=== PATIENT | female | born 1970 | race Caucasian/White ===

== ENCOUNTER 2021-11-02 01:24 | Emergency (ER) | payer BC ==
[2021-11-02 02:23] LABS: Absolute Neutrophil Ct (ANC) 4.93 x10^3/uL (1.4-6.9); Basophil (Absolute #) 0.07 x10^3/uL (0-0.4); Eosinophil % 1.6 % (0.00-5.0); Eosinophil (Absolute #) 0.14 x10^3/uL (0-0.5); Hematocrit 41.8 % (35-47); Hemoglobin 13.6 g/dL (12.0-16.0); Lymphocyte (Absolute #) 2.56 x10^3/uL (1.0-4.6); Lymphocytes % 29.6 % (24.0-44.0); Mean Cell Volume 87.8 fL (78-100); Mean Corpuscular Hemoglobin 28.6 pg (26-32); Mean Corpuscular Hgb Concent. 32.5 g/dL (32-36); Mean Platelet Volume 11.3 fL (7.5-11.0); Monocyte (Absolute #) 0.89 x10^3/uL (0.0-1.3); Monocytes % 10.3 % (0.0-12.0); Neutrophil % 57.1 % (36.0-66.0); Platelet Count 258 x10^3/uL (150-450); Red Blood Count 4.76 x10^6/uL (4.1-5.4); Red Cell Distribution Width 12.6 % (11.5-14.0); White Blood Count 8.6 x10^3/uL (4.0-10.5)
[2021-11-02 02:36] LABS: INR 0.97 (0.8-3.0); PROTIME 10.3 SECONDS (9.4-12.5); PTT 29.6 SECONDS (25.1-36.5)
[2021-11-02 02:39] LABS: ALBUMIN 3.7 g/dL (3.5-5.0); ALKALINE PHOSPHATASE 73 U/L (38-126); ANION GAP 9.9 MEQ/L (5-15); BLOOD UREA NITROGEN 10 mg/dL (7-17); CHLORIDE 105 mmol/L (98-107); Calcium 9.1 mg/dL (8.4-10.2); Carbon Dioxide 30 mmol/L (22-30); Creatinine 1 0.69 mg/dL (0.52-1.04); EST GLOMERULAR FILTRATION RATE > 60.0 ML/MIN; Glucose 108 mg/dL (74-106); NT PRO BNP 53.1 pg/mL (0-900); Potassium 3.4 mmol/L (3.5-5.1); SGOT/AST 25 U/L (14-36); SGPT/ALT 19 U/L (0-35); SODIUM 141 mmol/L (137-145); Total Protein 6.8 g/dL (6.3-8.2)
--- NOTE | 2021-11-02 06:36 | ERPHSYRPT ---
<YANELI GARY - Last Filed: 11/02/21 09:50> - History of Present Illness Source: patient Exam Limitations: no limitations Patient Subjective Stated Complaint: pt states she woke up around 0030 tonight and was very dizzy and unable to get to the bathroom by herself and had lt side weakness. states all was normal when she went to bed at 2130 Triage Nursing Assessment: pt alert and oriented, speech is wnl. pt back per wheelchair. transfers to stretcher with assist of 1. mild lt side facial droop. drift noted to lt upper and lower ext Time of Onset/Last Time Seen Normal: 2129 Timing/Duration: today, sudden Severity: moderate Character of Deficits: new weakness, altered sensation, vision problems Deficits: no difficulties Baseline/Normal Cognition: alert oriented x 3 Current Cognition: alert oriented x 3 Baseline Gait: walks w/o assistance Associated Symptoms: numbness/tingling in legs/feet Hx Tetanus, Diphtheria Vaccination/Date Given: No Hx Influenza Vaccination/Date Given: No Hx Pneumococcal Vaccination/Date Given: No Immunizations Up to Date: No <VIANCA JEFFERS - Last Filed: 11/03/21 22:39> - History of Present Illness Time Seen by Provider: 11/02/21 02:13 Physician History: PER dR. Jeffers, THE PT NOTED SYMPTOMS last pm and reported to ER after window for TPA with some improvement prior to arrival but stable since. No prior Hx but on hormonal patch which will need to be discontinued per neuro consult. awaiting CTA head and neck, then to seek admission for obs and continued workup including MRI if no acute thrombus, but to seek transfer for potential intervention if any found. (YANELI GARY) 51-year-old female presented to the ER with sudden onset feeling dizzy around 12:30 AM after she woke up for the bathroom and was having difficulty making their. She was having numbness on the left face and upper extremity along with weakness of left upper and lower extremity. She went to bed around 9:30 PM. There is some improvement in the weakness but still have numbness. No difficulty speech. (VIANCA JEFFERS) Allergies/Adverse Reactions: prednisone Adverse Reaction (Intermediate, Verified 11/02/21 01:55) low heart rate Home Medications: estradioL [Estradiol (Once Weekly)] 1 each TD WEEKLY 11/02/21 [History] Travel Risk - International Travel Have you traveled outside of the country in past 3 weeks: No - Coronavirus Screening Are you exhibiting any of the following symptoms?: No Close contact with a COVID-19 positive Pt in past 14-21 Days: No - Vaccine Status Have you recieved a Covid-19 vaccination: Yes [employer]: Moderna - Vaccination Dates Date of 2cond Vaccination (if applicable): 2020 <VIANCA JEFFERS - Last Filed: 11/03/21 22:39> - Review of Systems Constitutional: No Symptoms Eyes: Vision Changes Ears, Nose, & Throat: No Symptoms Respiratory: No Symptoms Cardiac: No Symptoms Abdominal/Gastrointestinal: No Symptoms Genitourinary Symptoms: No Symptoms Musculoskeletal: No Symptoms Skin: No Symptoms Neurological: Dizziness, Focal Weakness, Gait Changes, Sensory Changes Psychological: No Symptoms Endocrine: No Symptoms Hematologic/Lymphatic: No Symptoms Immunological/Allergic: No Symptoms <VIANCA JEFFERS - Last Filed: 11/03/21 22:39> - Past Medical History Pertinent Past Medical History: Yes Respiratory History: Asthma Other Medical History: hypoglycemia - Past Surgical History Past Surgical History: Yes Gastrointestinal: Cholecystectomy Female Surgical History: Hysterectomy Other Surgical History: hyster diamante - Social History Smoking Status: Former smoker Exposure to second hand smoke: No Drug Use: marijuana Patient Lives Alone: No <VIANCA JEFFERS - Last Filed: 11/03/21 22:39> - Physical Exam Pelvic Exam: deferred Rectal Exam: deferred Peripheral Pulses: carotid (R): 2+, carotid (L): 2+, femoral (R): 2+, femoral (L): 2+, dorsalis-pedis (R): 2+, dorsalis-pedis (L): 2+ <YANELI GARY - Last Filed: 11/02/21 09:50> - Hermelindo Coma Scale Best Eye Response (Hermelindo): (4) open spontaneously Best Verbal Response (Hermelindo): (5) oriented Best Motor Response (Hermelindo): (6) obeys commands Hermelindo Total: 15 - Physical Exam General Appearance: no apparent distress, alert Eye Exam: bilateral eye: normal inspection, PERRL, EOMI Ears, Nose, Throat Exam: normal ENT inspection, TMs normal, pharynx normal, moist mucous membranes Neck Exam: normal inspection, non-tender, supple, full range of motion Respiratory: normal breath sounds Cardiovascular: regular rate/rhythm, normal heart sounds Gastrointestinal: soft, normal bowel sounds, No tenderness Back Exam: normal inspection, normal range of motion Extremity Exam: normal inspection, normal range of motion, pelvis stable Mental Status: alert, oriented x 3, 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 Exam: normal hearing, normal speech, PERRL, No abnormal eye position Coordination/Gait: No normal cerebellar function Motor/Sensory: pronator drift (L), sensory deficit, weak motor strength LUE, weak motor strength LLE Skin Exam: normal color SpO2 Interpretation: normal SpO2: 99 O2 Delivery: Room Air <VIANCA JEFFERS - Last Filed: 11/03/21 22:39> - Nursing Vital Signs Nursing Vital Signs: Initial Vital Signs Pulse Rate 74 11/02/21 01:30 Respiratory Rate 16 11/02/21 01:30 Blood Pressure 136/76 11/02/21 01:30 O2 Sat by Pulse Oximetry 98 11/02/21 01:30 Pain Scale Pain Intensity 0 - Course Nursing assessment & vital signs reviewed: Yes EKG Interpreted by Me: NORMAL AXIS, NORMAL INTERVALS, NORMAL QRS, Non-specific ST Changes - CT Exams Head CT Interpretation: Tele-radiologist Report, No/Intracranial Hemorrhag <YANELI GARY - Last Filed: 11/02/21 09:50> Ordered Tests: Medication Summary Discontinued Medications Generic Name Dose Route Start Last Admin Trade Name Freq PRN Reason Stop Dose Admin Aspirin 324 mg 11/02/21 06:59 11/02/21 07:08 Aspirin 81 Mg Tab.Chew PO 11/02/21 07:00 324 mg STAT ONE Administration Lab/Rad Data: Laboratory Result Diagrams 11/02/21 02:20 11/02/21 02:20 Laboratory Results 11/02/21 11/02/21 11/02/21 Range/Units 08:20 05:15 02:20 WBC (4.0-10.5) x10^3/uL RBC (4.1-5.4) x10^6/uL Hgb (12.0-16.0) g/dL Hct (35-47) % MCV (78-100) fL MCH (26-32) pg MCHC (32-36) g/dL RDW (11.5-14.0) % Plt Count (150-450) x10^3/uL MPV (7.5-11.0) fL Gran % (36.0-66.0) % Immature Gran % (Auto) (0.00-0.4) % Nucleat RBC Rel Count (0.00-0.1) % Eos # (Auto) (0-0.5) x10^3/uL Immature Gran # (Auto) (0.00-0.03) x10^3u/L Absolute Lymphs (auto) (1.0-4.6) x10^3/uL Absolute Monos (auto) (0.0-1.3) x10^3/uL Absolute Nucleated RBC (0.00-0.01) x10^3u/L Lymphocytes % (24.0-44.0) % Monocytes % (0.0-12.0) % Eosinophils % (0.00-5.0) % Basophils % (0.0-0.4) % Absolute Granulocytes (1.4-6.9) x10^3/uL Basophils # (0-0.4) x10^3/uL PT (9.4-12.5) SECONDS INR (0.8-3.0) APTT (25.1-36.5) SECONDS Sodium (137-145) mmol/L Potassium (3.5-5.1) mmol/L Chloride (98-107) mmol/L Carbon Dioxide (22-30) mmol/L Anion Gap (5-15) MEQ/L BUN (7-17) mg/dL Creatinine (0.52-1.04) mg/dL Estimated GFR ML/MIN Glucose (74-106) mg/dL POC Glucometer (74 to 106) mg/dL Calcium (8.4-10.2) mg/dL Total Bilirubin (0.2-1.3) mg/dL AST (14-36) U/L ALT (0-35) U/L Alkaline Phosphatase (38-126) U/L Troponin I < 0.012 < 0.012 < 0.012 (0.000-0.034) ng/mL NT-Pro-B Natriuret Pep (0-900) pg/mL Serum Total Protein (6.3-8.2) g/dL Albumin (3.5-5.0) g/dL 11/02/21 11/02/21 11/02/21 Range/Units 02:20 02:20 02:20 WBC 8.6 (4.0-10.5) x10^3/uL RBC 4.76 (4.1-5.4) x10^6/uL Hgb 13.6 (12.0-16.0) g/dL Hct 41.8 (35-47) % MCV 87.8 (78-100) fL MCH 28.6 (26-32) pg MCHC 32.5 (32-36) g/dL RDW 12.6 (11.5-14.0) % Plt Count 258 (150-450) x10^3/uL MPV 11.3 H (7.5-11.0) fL Gran % 57.1 (36.0-66.0) % Immature Gran % (Auto) 0.6 H (0.00-0.4) % Nucleat RBC Rel Count 0.0 (0.00-0.1) % Eos # (Auto) 0.14 (0-0.5) x10^3/uL Immature Gran # (Auto) 0.05 H (0.00-0.03) x10^3u/L Absolute Lymphs (auto) 2.56 (1.0-4.6) x10^3/uL Absolute Monos (auto) 0.89 (0.0-1.3) x10^3/uL Absolute Nucleated RBC 0.00 (0.00-0.01) x10^3u/L Lymphocytes % 29.6 (24.0-44.0) % Monocytes % 10.3 (0.0-12.0) % Eosinophils % 1.6 (0.00-5.0) % Basophils % 0.8 (0.0-0.4) % Absolute Granulocytes 4.93 (1.4-6.9) x10^3/uL Basophils # 0.07 (0-0.4) x10^3/uL PT 10.3 (9.4-12.5) SECONDS INR 0.97 (0.8-3.0) APTT 29.6 (25.1-36.5) SECONDS Sodium 141 (137-145) mmol/L Potassium 3.4 L (3.5-5.1) mmol/L Chloride 105 (98-107) mmol/L Carbon Dioxide 30 (22-30) mmol/L Anion Gap 9.9 (5-15) MEQ/L BUN 10 (7-17) mg/dL Creatinine 0.69 (0.52-1.04) mg/dL Estimated GFR > 60.0 ML/MIN Glucose 108 H (74-106) mg/dL POC Glucometer (74 to 106) mg/dL Calcium 9.1 (8.4-10.2) mg/dL Total Bilirubin 0.40 (0.2-1.3) mg/dL AST 25 (14-36) U/L ALT 19 (0-35) U/L Alkaline Phosphatase 73 (38-126) U/L Troponin I (0.000-0.034) ng/mL NT-Pro-B Natriuret Pep 53.1 (0-900) pg/mL Serum Total Protein 6.8 (6.3-8.2) g/dL Albumin 3.7 (3.5-5.0) g/dL 11/02/21 Range/Units 01:48 WBC (4.0-10.5) x10^3/uL RBC (4.1-5.4) x10^6/uL Hgb (12.0-16.0) g/dL Hct (35-47) % MCV (78-100) fL MCH (26-32) pg MCHC (32-36) g/dL RDW (11.5-14.0) % Plt Count (150-450) x10^3/uL MPV (7.5-11.0) fL Gran % (36.0-66.0) % Immature Gran % (Auto) (0.00-0.4) % Nucleat RBC Rel Count (0.00-0.1) % Eos # (Auto) (0-0.5) x10^3/uL Immature Gran # (Auto) (0.00-0.03) x10^3u/L Absolute Lymphs (auto) (1.0-4.6) x10^3/uL Absolute Monos (auto) (0.0-1.3) x10^3/uL Absolute Nucleated RBC (0.00-0.01) x10^3u/L Lymphocytes % (24.0-44.0) % Monocytes % (0.0-12.0) % Eosinophils % (0.00-5.0) % Basophils % (0.0-0.4) % Absolute Granulocytes (1.4-6.9) x10^3/uL Basophils # (0-0.4) x10^3/uL PT (9.4-12.5) SECONDS INR (0.8-3.0) APTT (25.1-36.5) SECONDS Sodium (137-145) mmol/L Potassium (3.5-5.1) mmol/L Chloride (98-107) mmol/L Carbon Dioxide (22-30) mmol/L Anion Gap (5-15) MEQ/L BUN (7-17) mg/dL Creatinine (0.52-1.04) mg/dL Estimated GFR ML/MIN Glucose (74-106) mg/dL POC Glucometer 88 (74 to 106) mg/dL Calcium (8.4-10.2) mg/dL Total Bilirubin (0.2-1.3) mg/dL AST (14-36) U/L ALT (0-35) U/L Alkaline Phosphatase (38-126) U/L Troponin I (0.000-0.034) ng/mL NT-Pro-B Natriuret Pep (0-900) pg/mL Serum Total Protein (6.3-8.2) g/dL Albumin (3.5-5.0) g/dL - Progress Discussed with Dr.: Other [facility] Will see patient in: hospital (full admit) <YANELI GARY - Last Filed: 11/02/21 09:50> - Progress Progress: re-examined Counseled pt/family regarding: lab results, diagnosis, rad results <VIANCA JEFFERS - Last Filed: 11/03/21 22:39> - Progress Progress Note: 11/02/21 07:05 Pt received at change of shift from Dr. Jeffers after discussion of pending results and neuro consult and introduction to pt - exam unchanged. 11/02/21 09:18 contacted regional who also does not have MRI or echo today or neuro. but will keep case open if we have no other alternatives. Called [facility] who declined pt as not requiring stroke intervention. Calling [facility] now. 11/02/21 09:47 Dr. Ashley hospitalist at [facility] and they have neuro and MRI capability and accepted so we will arrange transport - family agrees to plan. (YANELI GARY) 11/02/21 06:42 Patient has been evaluated in the ER for acute stroke. CT head is negative. She has stable vitals. [facility] neurology consultation is obtained. Recommended CTA head and neck and if negative patient can be admitted with MRI and further stroke work-up. She would be given aspirin after speech and swallow eval. CTAs are pending, care is transferred to Dr. Gary at shift change for final disposition after CTAs. Plan discussed with patient and family who understand and agree with it. (VIANCA JEFFERS) - Departure Departure Disposition: Transfer Critical Care Time: Yes Critical Care Time(excluding separately billable procedures): Critical 30-74 mins (critical time to perform Stroke scale, and continued monitoring of Neuro estimated 60 minutes) <YANELI GARY - Last Filed: 11/02/21 09:50> - Departure Critical Care Time: Yes Critical Care Time(excluding separately billable procedures): Critical 30-74 mins <VIANCA JEFFERS - Last Filed: 11/03/21 22:39> - Departure Clinical Impression: Stroke Condition: Stable Referrals: DOCTOR,NO FAMILY [Primary Care Provider] - Follow up/PCP as directed
[2021-11-02] MEDS ORDERED: BABY ASPIRIN 81 MG CHEW PO ONE (06:59)
--- NOTE | 2021-11-02 08:04 | XRAY ---
Indication: Stroke. Multiple contiguous axial images obtained through the head without contrast. Comparison: None Normal appearing brain parenchyma, ventricles, and bony calvarium. Visualized paranasal sinuses and mastoid air cells are clear. Impression: Normal CT head without contrast exam. Comment: Preliminary interpretation made by [facility]. No critical discrepancy.
--- NOTE | 2021-11-02 08:08 | XRAY ---
Indication: Left facial droop, left-sided numbness, dizziness, nausea. Normal CT head without contrast exam. Conventional CTA neck performed using 100 cc Isovue 370 contrast. Two-dimensional sagittal and coronal reformatted images obtained. Additional 3-dimensional reformatted images obtained using separate workstation. Comparison: None Visualized aortic arch is normal in course and caliber with widely patent branch right brachiocephalic, left common carotid, and left subclavian arteries. Left and right common carotid, carotid bulb, internal carotid, and external carotid arteries are normal in CTA appearance. Vertebral arteries are also normal in CTA appearance. Visualized soft tissues are negative for pathologic lymphadenopathy. Parotid and submandibular glands are bilaterally symmetric. Supra and infraglottic airway widely patent. Osseous structures intact with mild/moderate C5-C7 degenerative changes. Lung apices are clear. Impression: Normal CTA neck with contrast exam. Incidental C5-C7 degenerative changes. Comment: Preliminary interpretation made by [facility]. No critical discrepancy.
--- NOTE | 2021-11-02 08:12 | XRAY ---
Indication: Left facial droop, left-sided numbness, dizziness, nausea. Normal CT head without contrast exam. Conventional CTA head performed using 100 cc Isovue 370 contrast. Two-dimensional sagittal and coronal reformatted images obtained. Additional 3-dimensional reformatted images obtained using separate workstation. Comparison: None Distal internal carotid arteries demonstrates very minimal calcification right parasellar segment. No critical stenosis, obstruction, or AV malformation. Normal carotid terminus with normal branching A1 and M1 segments bilaterally. More distal anterior cerebral, middle cerebral, anterior communicating, and posterior communicating arteries are normal in CTA appearance. Posterior circulation demonstrates normal CTA appearance to the basilar, left/right posterior cerebral, left/right superior cerebellar, and left/right anterior inferior cerebellar arteries. Venous sinuses/drainage are unremarkable. No abnormal enhancing intra or extra-axial mass. Impression: Very minimal calcification right parasellar internal carotid artery without critical stenosis/obstruction. Remaining CTA head with contrast exam is normal. Comment: Preliminary interpretation made by [facility]. No critical discrepancy.
[2021-11-02 09:14] VITALS: BP 116/65; PULSE 60
[2021-11-03 22:40] VITALS: O2SAT 99
== END 2021-11-02 10:45 | disposition short-term general hospital (02) ==
LOC: ED 01:24
DX: I63.9 Cerebral infarction, unspecified (principal); R29.810 Facial weakness; G81.94 Hemiplegia, unspecified affecting left nondominant side; R20.0 Anesthesia of skin
CPT/HCPCS: 36000; 36415; 70450; 70496; 70498; 80053; 82947; 83880; 84484; 85025; 85610; 85730; 93005; 93041; 99284; 99291; A9270-GY